=== PATIENT | female | born 1970 | race Asian ===

== ENCOUNTER 2018-04-07 16:08 | Inpatient (IN) | payer OTHER ==
[~2018-04-07] VITALS: Ht 144.8 cm; Wt 57.6 kg
[2018-04-07 18:30] VITALS: BP 138/88
[2018-04-07] MEDS ORDERED: PNEUMOCOCCAL VACCINE POLYVALENT 0.5 ML VIAL [PPSV23] IM ONE (20:00)
[2018-04-07] MEDS ORDERED: OMEPRAZOLE 20 MG CAPSULE PEG SCH (21:00)
[2018-04-07] MEDS ORDERED: CLARITHROMYCIN 250 MG/5 ML PEG SCH (21:00)
[2018-04-07] MEDS ORDERED: INSULIN LISPRO 100 UNITS/ML SQ PRN ×2 (21:45)
[2018-04-07] MEDS ORDERED: DEXTROSE 50%-WATER 25 GM/50 ML SYRINGE IVP PRN ×2 (21:45)
[2018-04-07] MEDS ORDERED: ACETAMINOPHEN 650 MG/20.3 ML SOLUTION UDCUP PEG PRN (22:00)
[2018-04-07] MEDS ORDERED: SENNA 187 MG TABLET PEG PRN (22:00)
[2018-04-07] MEDS ORDERED: DOCUSATE SODIUM 100 MG CAPSULE PEG PRN (22:00)
[2018-04-08 00:30] VITALS: BP 134/89
[2018-04-08] MEDS: CARVEDILOL 12.5 MG TABLET PEG SCH ×3 (00:44→21:42)
[2018-04-08] MEDS: MetroNIDAZOLE 500 MG TABLET PEG SCH ×3 (00:44→21:37)
[2018-04-08] MEDS: AMOXICILLIN TRIHYDRATE 250 MG/5 ML SUSPENSION ORAL.SYG PEG SCH ×3 (00:49→21:34)
[2018-04-08 01:30] LABS: GLUCOMETER DEV NAME(LOC) 2WR.2; GLUCOSE,POINT OF CARE 98 MG/DL (70-110)
[2018-04-08] MEDS: ACETAMINOPHEN 650 MG/20.3 ML SOLUTION UDCUP PEG PRN ×2 (04:40→16:23)
[2018-04-08] MEDS ORDERED: DEXTROSE 50%-WATER 25 GM/50 ML SYRINGE IVP PRN (05:15)
[2018-04-08 06:28] LABS: GLUCOMETER DEV NAME(LOC) 2WR.2; GLUCOSE,POINT OF CARE 129 MG/DL (70-110)
[2018-04-08 06:55] LABS: EOSINOPHILS % (AUTO) 0.3 % (1.0-6.0); HEMOGLOBIN 8.4 g/dL (12.0-16.0); LYMPHOCYTES # (AUTO) 2.2 K/uL (1.0-4.8); LYMPHOCYTES % (AUTO) 14.3 % (22.0-44.0); MEAN CORPUSCULAR HGB CONC 30.1 G/dL (31.0-37.0); MEAN CORPUSCULAR VOLUME 66 fL (80-100); MONOCYTES # (AUTO) 1.5 K/uL (0.1-1.0); MONOCYTES % (AUTO) 9.7 % (2.0-9.0); NEUTROPHILS # (AUTO) 11.6 K/uL (1.8-7.7); NEUTROPHILS % (AUTO) 74.7 % (40.0-70.0); PLATELET COUNT (AUTO) 659 K/uL (150-450); RED BLOOD CELL COUNT(AUTO) 4.23 MIL/uL (4.00-5.20); RED CELL DISTRIBUTION WIDTH 20.3 % (11.5-14.5)
[2018-04-08 07:17] LABS: ALANINE AMINOTRANSFERASE 151 U/L (12-78); ALBUMIN 2.3 g/dL (3.4-5.0); ALKALINE PHOSPHATASE 81 U/L (46-116); ANION GAP 4 mmol/L (8-16); ASPARTATE AMINOTRANSFERASE 166 U/L (15-37); BILIRUBIN,TOTAL 0.3 mg/dL (0.1-1.0); CALCIUM, TOTAL 8.5 mg/dL (8.8-10.5); CARBON DIOXIDE 32 mmol/L (22-29); CHLORIDE 102 mmol/L (98-107); CREATININE 0.49 mg/dL (0.60-1.30); GLOMERULAR FILTR. RATE CALC > 60 mL/min (>60); GLUCOSE,RANDOM 134 mg/dL (70-110); POTASSIUM 3.2 mmol/L (3.5-5.1); SODIUM SERUM 138 mmol/L (136-145); UREA NITROGEN, BLOOD 12 mg/dL (7-18)
[2018-04-08 07:30] VITALS: BP 132/82
[2018-04-08] MEDS: ENOXAPARIN SODIUM 40 MG/0.4 ML PF SYRINGE SQ SCH (08:16)
[2018-04-08] MEDS: CLARITHROMYCIN 500 MG TABLET PEG SCH ×2 (08:18→21:34)
[2018-04-08] MEDS: LANSOPRAZOLE 30 MG SOLUBLE TABLET PEG SCH ×2 (08:19→21:36)
[2018-04-08] MEDS: ERGOCALCIFEROL (VIT D2) 50,000 UNITS CAPSULE PEG SCH (08:19)
[2018-04-08] MEDS: PredniSONE 20 MG TABLET PEG SCH (08:22)
[2018-04-08] MEDS ORDERED: CLARITHROMYCIN 250 MG/5 ML PEG SCH (09:00)
[2018-04-08] MEDS ORDERED: AMOXICILLIN TRIHYDRATE 250 MG/5 ML SUSPENSION ORAL.SYG PEG SCH (09:00)
[2018-04-08] MEDS ORDERED: OMEPRAZOLE 20 MG CAPSULE PEG SCH (09:00)
[2018-04-08] MEDS ORDERED: MetroNIDAZOLE 500 MG TABLET PEG SCH (09:00)
[2018-04-08] MEDS ORDERED: CARVEDILOL 12.5 MG TABLET PEG SCH (09:00)
[2018-04-08] MEDS ORDERED: POTASSIUM CHLORIDE 20 MEQ ER TABLET PO ONE ×2 (13:00→21:00)
[2018-04-08] MEDS: INSULIN REGULAR, HUMAN 100 UNITS/ML SQ PRN ×2 (13:07→18:17)
[2018-04-08] MEDS ORDERED: POTASSIUM CHLORIDE 10% 40 MEQ/30 ML LIQUID UDCUP PEG ONE ×2 (13:15→21:15)
[2018-04-08 13:54] LABS: GLUCOMETER DEV NAME(LOC) 2WR.2; GLUCOSE,POINT OF CARE 170 MG/DL (70-110)
[2018-04-08] MEDS ORDERED: PHENYLEPHRINE/SHK LV/MIN OIL/PET 57 GM OINTMENT TP PRN (16:00)
[2018-04-08 16:23] VITALS: BP 143/60
[2018-04-08 16:30] VITALS: BP 143/60
[2018-04-08 18:53] LABS: GLUCOMETER DEV NAME(LOC) 2WR.1; GLUCOSE,POINT OF CARE 206 MG/DL (70-110)
[2018-04-08 21:00] VITALS: BP 127/85
[2018-04-09 00:39] LABS: GLUCOMETER DEV NAME(LOC) 2WR.1; GLUCOSE,POINT OF CARE 140 MG/DL (70-110)
[2018-04-09 00:52] VITALS: BP 121/72
[2018-04-09 06:23] LABS: GLUCOMETER DEV NAME(LOC) 2WR.1; GLUCOSE,POINT OF CARE 135 MG/DL (70-110)
[2018-04-09] MEDS: ACETAMINOPHEN 650 MG/20.3 ML SOLUTION UDCUP PEG PRN ×2 (06:48→12:31)
[2018-04-09 06:51] LABS: ANION GAP 5 mmol/L (8-16); CALCIUM, TOTAL 8.4 mg/dL (8.8-10.5); CARBON DIOXIDE 30 mmol/L (22-29); CHLORIDE 104 mmol/L (98-107); GLOMERULAR FILTR. RATE CALC > 60 mL/min (>60); GLUCOSE,RANDOM 126 mg/dL (70-110); SODIUM SERUM 139 mmol/L (136-145); UREA NITROGEN, BLOOD 12 mg/dL (7-18)
[2018-04-09 09:01] VITALS: BP 132/81
[2018-04-09] MEDS: CARVEDILOL 12.5 MG TABLET PEG SCH ×2 (09:25→21:39)
[2018-04-09] MEDS: LANSOPRAZOLE 30 MG SOLUBLE TABLET PEG SCH ×2 (09:25→21:38)
[2018-04-09] MEDS: CLARITHROMYCIN 500 MG TABLET PEG SCH ×2 (09:25→21:38)
[2018-04-09] MEDS: SULFAMETHOX/TRIMETH DS 800-160 MG/TABLET PEG SCH (09:26)
[2018-04-09] MEDS: PredniSONE 20 MG TABLET PEG SCH (09:27)
[2018-04-09] MEDS: AMOXICILLIN TRIHYDRATE 250 MG/5 ML SUSPENSION ORAL.SYG PEG SCH ×2 (09:27→21:41)
[2018-04-09] MEDS: ENOXAPARIN SODIUM 40 MG/0.4 ML PF SYRINGE SQ SCH (09:27)
[2018-04-09] MEDS: MetroNIDAZOLE 500 MG TABLET PEG SCH ×2 (09:27→21:38)
[2018-04-09] MEDS: INSULIN REGULAR, HUMAN 100 UNITS/ML SQ PRN ×2 (12:46→18:59)
[2018-04-09 12:54] LABS: GLUCOMETER DEV NAME(LOC) 2WR.1; GLUCOSE,POINT OF CARE 160 MG/DL (70-110)
[2018-04-09 16:00] VITALS: BP 128/80
[2018-04-09 20:48] LABS: GLUCOMETER DEV NAME(LOC) 2WR.2; GLUCOSE,POINT OF CARE 193 MG/DL (70-110)
[2018-04-09 21:33] VITALS: BP 115/54
[2018-04-09 21:39] VITALS: BP 130/88
[2018-04-09] MEDS: HYDROCODONE/ACETAMINOPHEN 5-325 MG TABLET PEG PRN (21:39)
[2018-04-10 00:18] LABS: GLUCOMETER DEV NAME(LOC) 2WR.1; GLUCOSE,POINT OF CARE 165 MG/DL (70-110)
[2018-04-10] MEDS: INSULIN REGULAR, HUMAN 100 UNITS/ML SQ PRN ×3 (00:18→18:30)
[2018-04-10 06:24] LABS: GLUCOMETER DEV NAME(LOC) 2WR.1; GLUCOSE,POINT OF CARE 113 MG/DL (70-110)
[2018-04-10] MEDS: CARVEDILOL 12.5 MG TABLET PEG SCH ×2 (08:22→21:06)
[2018-04-10] MEDS: MetroNIDAZOLE 500 MG TABLET PEG SCH ×2 (08:22→21:06)
[2018-04-10] MEDS: PredniSONE 20 MG TABLET PEG SCH (08:22)
[2018-04-10] MEDS: CLARITHROMYCIN 500 MG TABLET PEG SCH ×2 (08:23→21:06)
[2018-04-10] MEDS: ENOXAPARIN SODIUM 40 MG/0.4 ML PF SYRINGE SQ SCH (08:23)
[2018-04-10] MEDS: LANSOPRAZOLE 30 MG SOLUBLE TABLET PEG SCH ×2 (08:27→21:06)
[2018-04-10] MEDS: HYDROCODONE/ACETAMINOPHEN 5-325 MG TABLET PEG PRN (08:40)
[2018-04-10] MEDS: AMOXICILLIN TRIHYDRATE 250 MG/5 ML SUSPENSION ORAL.SYG PEG SCH ×2 (09:23→21:05)
[2018-04-10 09:35] VITALS: BP 144/95
[2018-04-10 11:59] LABS: GLUCOMETER DEV NAME(LOC) 2WR.1; GLUCOSE,POINT OF CARE 188 MG/DL (70-110)
[2018-04-10 15:35] VITALS: BP 129/88
[2018-04-10 18:38] LABS: GLUCOMETER DEV NAME(LOC) 2WR.2; GLUCOSE,POINT OF CARE 200 MG/DL (70-110)
[2018-04-10 20:59] VITALS: BP 129/93
[2018-04-11 00:04] LABS: GLUCOMETER DEV NAME(LOC) 2WR.1; GLUCOSE,POINT OF CARE 109 MG/DL (70-110)
[2018-04-11 00:30] VITALS: BP 122/82
[2018-04-11] MEDS: HYDROCODONE/ACETAMINOPHEN 5-325 MG TABLET PEG PRN (00:30)
[2018-04-11 06:39] LABS: GLUCOMETER DEV NAME(LOC) 2WR.1; GLUCOSE,POINT OF CARE 87 MG/DL (70-110)
[2018-04-11] MEDS: MetroNIDAZOLE 500 MG TABLET PEG SCH ×2 (08:49→21:24)
[2018-04-11] MEDS: AMOXICILLIN TRIHYDRATE 250 MG/5 ML SUSPENSION ORAL.SYG PEG SCH ×2 (08:50→21:25)
[2018-04-11] MEDS: CARVEDILOL 12.5 MG TABLET PEG SCH ×2 (08:51→21:24)
[2018-04-11] MEDS: ENOXAPARIN SODIUM 40 MG/0.4 ML PF SYRINGE SQ SCH (08:51)
[2018-04-11] MEDS: LANSOPRAZOLE 30 MG SOLUBLE TABLET PEG SCH ×2 (08:52→21:23)
[2018-04-11] MEDS: CLARITHROMYCIN 500 MG TABLET PEG SCH ×2 (08:52→21:23)
[2018-04-11] MEDS: PredniSONE 20 MG TABLET PEG SCH (08:53)
[2018-04-11 09:21] VITALS: BP 133/86
[2018-04-11 12:29] LABS: GLUCOMETER DEV NAME(LOC) 2WR.2; GLUCOSE,POINT OF CARE 169 MG/DL (70-110)
[2018-04-11] MEDS: INSULIN REGULAR, HUMAN 100 UNITS/ML SQ PRN ×2 (12:57→18:11)
[2018-04-11 16:06] VITALS: BP 146/82
[2018-04-11] MEDS ORDERED: LIDOCAINE 2% 5 ML JELLY TP PRN (18:00)
[2018-04-11 19:08] LABS: GLUCOMETER DEV NAME(LOC) 2WR.2; GLUCOSE,POINT OF CARE 152 MG/DL (70-110)
[2018-04-11 21:22] VITALS: BP 138/86
[2018-04-11] MEDS: LIDOCAINE 2% 5 ML JELLY TP SCH (21:23)
[2018-04-12 00:16] VITALS: BP 139/75
[2018-04-12] MEDS: HYDROCODONE/ACETAMINOPHEN 5-325 MG TABLET PEG PRN ×2 (00:16→11:40)
[2018-04-12 00:18] LABS: GLUCOMETER DEV NAME(LOC) 2WR.2; GLUCOSE,POINT OF CARE 123 MG/DL (70-110)
[2018-04-12 06:18] LABS: GLUCOMETER DEV NAME(LOC) 2WR.2; GLUCOSE,POINT OF CARE 100 MG/DL (70-110)
[2018-04-12 07:06] LABS: ANION GAP 7 mmol/L (8-16); CALCIUM, TOTAL 8.7 mg/dL (8.8-10.5); CARBON DIOXIDE 32 mmol/L (22-29); CHLORIDE 101 mmol/L (98-107); CREATININE 0.45 mg/dL (0.60-1.30); GLOMERULAR FILTR. RATE CALC > 60 mL/min (>60); GLUCOSE,RANDOM 101 mg/dL (70-110); POTASSIUM 3.5 mmol/L (3.5-5.1); SODIUM SERUM 140 mmol/L (136-145); UREA NITROGEN, BLOOD 16 mg/dL (7-18)
[2018-04-12 07:11] LABS: BASOPHILS % (AUTO) 0.7 % (0.0-2.0); EOSINOPHILS % (AUTO) 1.1 % (1.0-6.0); HEMATOCRIT 28.4 % (36-46); HEMOGLOBIN 8.6 g/dL (12.0-16.0); LYMPHOCYTES # (AUTO) 1.8 K/uL (1.0-4.8); LYMPHOCYTES % (AUTO) 7.9 % (22.0-44.0); MEAN CORPUSCULAR HEMOGLOBIN 19.9 pg (26.0-34.0); MEAN CORPUSCULAR HGB CONC 30.2 G/dL (31.0-37.0); MEAN CORPUSCULAR VOLUME 66 fL (80-100); MONOCYTES # (AUTO) 0.7 K/uL (0.1-1.0); MONOCYTES % (AUTO) 3.4 % (2.0-9.0); NEUTROPHILS # (AUTO) 19.4 K/uL (1.8-7.7); RED BLOOD CELL COUNT(AUTO) 4.31 MIL/uL (4.00-5.20); RED CELL DISTRIBUTION WIDTH 19.9 % (11.5-14.5)
[2018-04-12 07:32] LABS: NEUTROPHILS % (AUTO) 86.9 % (40.0-70.0); PLATELET COUNT (AUTO) 769 K/uL (150-450)
[2018-04-12 08:22] LABS: PLATELET MORPHOLOGY COMMENT GIANT PLTS PRESENT
[2018-04-12] MEDS: SULFAMETHOX/TRIMETH DS 800-160 MG/TABLET PEG SCH (08:29)
[2018-04-12 08:30] VITALS: BP 141/81
[2018-04-12] MEDS: PredniSONE 20 MG TABLET PEG SCH (08:30)
[2018-04-12] MEDS: LIDOCAINE 2% 5 ML JELLY TP SCH ×2 (08:31→20:14)
[2018-04-12] MEDS: AMOXICILLIN TRIHYDRATE 250 MG/5 ML SUSPENSION ORAL.SYG PEG SCH ×2 (08:31→20:14)
[2018-04-12] MEDS: CLARITHROMYCIN 500 MG TABLET PEG SCH ×2 (08:32→20:15)
[2018-04-12] MEDS: LANSOPRAZOLE 30 MG SOLUBLE TABLET PEG SCH ×2 (08:33→20:15)
[2018-04-12] MEDS: MetroNIDAZOLE 500 MG TABLET PEG SCH ×2 (08:33→20:15)
[2018-04-12] MEDS: ENOXAPARIN SODIUM 40 MG/0.4 ML PF SYRINGE SQ SCH (08:33)
[2018-04-12] MEDS: CARVEDILOL 12.5 MG TABLET PEG SCH ×2 (08:33→20:15)
[2018-04-12] MEDS: BACITRACIN 28.4 GM OINTMENT TP SCH (08:33)
[2018-04-12] MEDS: ACETAMINOPHEN 650 MG/20.3 ML SOLUTION UDCUP PEG PRN (09:26)
[2018-04-12] MEDS: INSULIN REGULAR, HUMAN 100 UNITS/ML SQ PRN ×2 (12:07→18:13)
[2018-04-12 13:18] LABS: GLUCOMETER DEV NAME(LOC) 2WR.2; GLUCOSE,POINT OF CARE 181 MG/DL (70-110)
[2018-04-12 15:35] VITALS: BP 138/74
[2018-04-12 18:24] LABS: GLUCOMETER DEV NAME(LOC) 2WR.1; GLUCOSE,POINT OF CARE 158 MG/DL (70-110)
[2018-04-12 21:00] VITALS: BP 136/76
[2018-04-13] VITALS: BP 118/75
[2018-04-13 00:18] LABS: GLUCOMETER DEV NAME(LOC) 2WR.2; GLUCOSE,POINT OF CARE 127 MG/DL (70-110)
[2018-04-13 06:09] LABS: GLUCOMETER DEV NAME(LOC) 2WR.2; GLUCOSE,POINT OF CARE 103 MG/DL (70-110)
[2018-04-13] MEDS: CARVEDILOL 12.5 MG TABLET PEG SCH ×2 (09:23→21:28)
[2018-04-13] MEDS: CLARITHROMYCIN 500 MG TABLET PEG SCH ×2 (09:23→21:28)
[2018-04-13] MEDS: LACTOBAC ACID/BULG/BIFID/THERM TABLET PO SCH (09:23)
[2018-04-13] MEDS: MetroNIDAZOLE 500 MG TABLET PEG SCH ×2 (09:23→21:28)
[2018-04-13] MEDS: ENOXAPARIN SODIUM 40 MG/0.4 ML PF SYRINGE SQ SCH (09:24)
[2018-04-13] MEDS: LANSOPRAZOLE 30 MG SOLUBLE TABLET PEG SCH ×2 (09:24→21:28)
[2018-04-13] MEDS: PredniSONE 20 MG TABLET PEG SCH (09:24)
[2018-04-13] MEDS: AMOXICILLIN TRIHYDRATE 250 MG/5 ML SUSPENSION ORAL.SYG PEG SCH ×2 (09:25→21:28)
[2018-04-13] MEDS: BACITRACIN 28.4 GM OINTMENT TP SCH (09:26)
[2018-04-13] MEDS: LIDOCAINE 2% 5 ML JELLY TP SCH ×2 (09:26→21:28)
[2018-04-13] MEDS: ACETAMINOPHEN 650 MG/20.3 ML SOLUTION UDCUP PEG PRN (09:28)
[2018-04-13 09:47] VITALS: BP 128/74
[2018-04-13 12:54] LABS: GLUCOMETER DEV NAME(LOC) 2WR.1; GLUCOSE,POINT OF CARE 186 MG/DL (70-110)
[2018-04-13] MEDS: INSULIN REGULAR, HUMAN 100 UNITS/ML SQ PRN ×2 (12:58→17:56)
[2018-04-13 16:10] VITALS: BP 136/81
[2018-04-13 18:24] LABS: GLUCOMETER DEV NAME(LOC) 2WR.2; GLUCOSE,POINT OF CARE 169 MG/DL (70-110)
[2018-04-13 21:25] VITALS: BP 137/87
[2018-04-13] MEDS: MELATONIN 3 MG TABLET PO PRN (21:41)
[2018-04-13 23:59] LABS: GLUCOMETER DEV NAME(LOC) 2WR.2; GLUCOSE,POINT OF CARE 134 MG/DL (70-110)
[2018-04-14 00:14] VITALS: BP 117/72
[2018-04-14 06:14] LABS: GLUCOMETER DEV NAME(LOC) 2WR.2; GLUCOSE,POINT OF CARE 111 MG/DL (70-110)
[2018-04-14 07:42] LABS: ANION GAP 6 mmol/L (8-16); CALCIUM, TOTAL 8.3 mg/dL (8.8-10.5); CARBON DIOXIDE 31 mmol/L (22-29); CHLORIDE 104 mmol/L (98-107); CREATININE 0.39 mg/dL (0.60-1.30); GLOMERULAR FILTR. RATE CALC > 60 mL/min (>60); GLUCOSE,RANDOM 109 mg/dL (70-110); POTASSIUM 3.6 mmol/L (3.5-5.1); SODIUM SERUM 141 mmol/L (136-145); UREA NITROGEN, BLOOD 19 mg/dL (7-18)
[2018-04-14 07:44] LABS: BASOPHILS % (AUTO) 0.5 % (0.0-2.0); EOSINOPHILS % (AUTO) 1.8 % (1.0-6.0); HEMATOCRIT 28.3 % (36-46); HEMOGLOBIN 8.6 g/dL (12.0-16.0); LYMPHOCYTES # (AUTO) 1.7 K/uL (1.0-4.8); LYMPHOCYTES % (AUTO) 10.9 % (22.0-44.0); MEAN CORPUSCULAR HEMOGLOBIN 19.9 pg (26.0-34.0); MEAN CORPUSCULAR HGB CONC 30.4 G/dL (31.0-37.0); MEAN CORPUSCULAR VOLUME 65 fL (80-100); MONOCYTES # (AUTO) 0.9 K/uL (0.1-1.0); MONOCYTES % (AUTO) 5.5 % (2.0-9.0); NEUTROPHILS # (AUTO) 12.9 K/uL (1.8-7.7); NEUTROPHILS % (AUTO) 81.3 % (40.0-70.0); RED BLOOD CELL COUNT(AUTO) 4.32 MIL/uL (4.00-5.20); RED CELL DISTRIBUTION WIDTH 20.1 % (11.5-14.5)
[2018-04-14 08:00] LABS: PLATELET COUNT (AUTO) 781 K/uL (150-450)
[2018-04-14] MEDS: LIDOCAINE 2% 5 ML JELLY TP SCH ×2 (08:17→21:31)
[2018-04-14] MEDS: SULFAMETHOX/TRIMETH DS 800-160 MG/TABLET PEG SCH (08:17)
[2018-04-14] MEDS: LANSOPRAZOLE 30 MG SOLUBLE TABLET PEG SCH ×2 (08:17→21:32)
[2018-04-14] MEDS: CARVEDILOL 12.5 MG TABLET PEG SCH ×2 (08:17→21:31)
[2018-04-14] MEDS: ENOXAPARIN SODIUM 40 MG/0.4 ML PF SYRINGE SQ SCH (08:17)
[2018-04-14] MEDS: MetroNIDAZOLE 500 MG TABLET PEG SCH ×2 (08:17→21:31)
[2018-04-14] MEDS: BACITRACIN 28.4 GM OINTMENT TP SCH (08:17)
[2018-04-14] MEDS: LACTOBAC ACID/BULG/BIFID/THERM TABLET PO SCH (08:17)
[2018-04-14] MEDS: PredniSONE 20 MG TABLET PEG SCH (08:18)
[2018-04-14] MEDS: CLARITHROMYCIN 500 MG TABLET PEG SCH ×2 (08:18→21:31)
[2018-04-14] MEDS: AMOXICILLIN TRIHYDRATE 250 MG/5 ML SUSPENSION ORAL.SYG PEG SCH ×2 (08:26→21:36)
[2018-04-14 09:00] VITALS: BP 133/89
[2018-04-14] MEDS: HYDROCODONE/ACETAMINOPHEN 5-325 MG TABLET PEG PRN (10:45)
[2018-04-14] MEDS: INSULIN REGULAR, HUMAN 100 UNITS/ML SQ PRN ×2 (12:33→18:09)
[2018-04-14 13:49] LABS: GLUCOMETER DEV NAME(LOC) 2WR.1; GLUCOSE,POINT OF CARE 176 MG/DL (70-110)
[2018-04-14 16:00] VITALS: BP 134/94
[2018-04-14 17:44] LABS: GLUCOMETER DEV NAME(LOC) 2WR.1; GLUCOSE,POINT OF CARE 145 MG/DL (70-110)
[2018-04-15 01:27] VITALS: BP 130/68
[2018-04-15 05:50] VITALS: BP 150/89
[2018-04-15 05:54] LABS: GLUCOMETER DEV NAME(LOC) 2WR.2; GLUCOSE,POINT OF CARE 76 MG/DL (70-110)
[2018-04-15 06:10] VITALS: BP 139/80
[2018-04-15 07:09] VITALS: BP 133/82
[2018-04-15] MEDS: AMOXICILLIN TRIHYDRATE 250 MG/5 ML SUSPENSION ORAL.SYG PEG SCH (08:30)
[2018-04-15] MEDS: ENOXAPARIN SODIUM 40 MG/0.4 ML PF SYRINGE SQ SCH (08:30)
[2018-04-15] MEDS: BACITRACIN 28.4 GM OINTMENT TP SCH (08:30)
[2018-04-15] MEDS: CARVEDILOL 12.5 MG TABLET PEG SCH ×2 (08:31→21:26)
[2018-04-15] MEDS: ERGOCALCIFEROL (VIT D2) 50,000 UNITS CAPSULE PEG SCH (08:31)
[2018-04-15] MEDS: CLARITHROMYCIN 500 MG TABLET PEG SCH ×2 (08:31→21:26)
[2018-04-15] MEDS: LIDOCAINE 2% 5 ML JELLY TP SCH ×2 (08:31→21:26)
[2018-04-15] MEDS: LANSOPRAZOLE 30 MG SOLUBLE TABLET PEG SCH ×2 (08:31→21:26)
[2018-04-15] MEDS: LACTOBAC ACID/BULG/BIFID/THERM TABLET PO SCH (08:31)
[2018-04-15] MEDS: MetroNIDAZOLE 500 MG TABLET PEG SCH ×2 (08:32→21:26)
[2018-04-15] MEDS: PredniSONE 20 MG TABLET PEG SCH (08:32)
[2018-04-15] MEDS: HYDROCODONE/ACETAMINOPHEN 5-325 MG TABLET PEG PRN (10:16)
[2018-04-15] MEDS: ONDANSETRON HCL 4 MG TABLET PO PRN (10:16)
[2018-04-15 16:30] VITALS: BP 141/83
[2018-04-15 17:23] LABS: GLUCOMETER DEV NAME(LOC) 2WR.2; GLUCOSE,POINT OF CARE 175 MG/DL (70-110)
[2018-04-15] MEDS: INSULIN REGULAR, HUMAN 100 UNITS/ML SQ PRN (17:49)
[2018-04-15 21:24] VITALS: BP 113/82
[2018-04-16 01:45] VITALS: BP 128/83
[2018-04-16 05:49] LABS: GLUCOMETER DEV NAME(LOC) 2WR.2; GLUCOSE,POINT OF CARE 82 MG/DL (70-110)
[2018-04-16 09:17] VITALS: BP 120/60
[2018-04-16] MEDS: ENOXAPARIN SODIUM 40 MG/0.4 ML PF SYRINGE SQ SCH (09:26)
[2018-04-16] MEDS: CARVEDILOL 12.5 MG TABLET PEG SCH ×2 (09:26→20:20)
[2018-04-16] MEDS: LIDOCAINE 2% 5 ML JELLY TP SCH ×2 (09:26→20:20)
[2018-04-16] MEDS: LANSOPRAZOLE 30 MG SOLUBLE TABLET PEG SCH ×2 (09:26→20:20)
[2018-04-16] MEDS: BACITRACIN 28.4 GM OINTMENT TP SCH (09:26)
[2018-04-16] MEDS: LACTOBAC ACID/BULG/BIFID/THERM TABLET PO SCH (09:27)
[2018-04-16] MEDS: SULFAMETHOX/TRIMETH DS 800-160 MG/TABLET PEG SCH (09:27)
[2018-04-16] MEDS: PredniSONE 20 MG TABLET PEG SCH (09:30)
[2018-04-16 16:01] VITALS: BP 133/75
[2018-04-16 17:00] LABS: GLUCOMETER DEV NAME(LOC) 2WR.1; GLUCOSE,POINT OF CARE 216 MG/DL (70-110)
[2018-04-16] MEDS: INSULIN REGULAR, HUMAN 100 UNITS/ML SQ PRN (17:19)
[2018-04-16 20:17] VITALS: BP 140/72
[2018-04-16] MEDS: MELATONIN 3 MG TABLET PO PRN (20:20)
[2018-04-17] VITALS: BP 120/71
[2018-04-17] MEDS: ONDANSETRON HCL 4 MG TABLET PO PRN ×2 (02:37→08:42)
[2018-04-17 06:08] LABS: GLUCOMETER DEV NAME(LOC) 2WR.1; GLUCOSE,POINT OF CARE 93 MG/DL (70-110)
[2018-04-17] MEDS: LANSOPRAZOLE 30 MG SOLUBLE TABLET PEG SCH ×2 (08:41→20:24)
[2018-04-17] MEDS: LACTOBAC ACID/BULG/BIFID/THERM TABLET PO SCH (08:41)
[2018-04-17] MEDS: PredniSONE 20 MG TABLET PEG SCH (08:42)
[2018-04-17] MEDS: LIDOCAINE 2% 5 ML JELLY TP SCH ×2 (08:42→20:24)
[2018-04-17] MEDS: ENOXAPARIN SODIUM 40 MG/0.4 ML PF SYRINGE SQ SCH (08:42)
[2018-04-17] MEDS: CARVEDILOL 12.5 MG TABLET PEG SCH ×2 (08:42→20:24)
[2018-04-17] MEDS: BACITRACIN 28.4 GM OINTMENT TP SCH (08:42)
[2018-04-17] MEDS ORDERED: BACI30OI6 TP (08:45)
[2018-04-17] MEDS ORDERED: [UNRECOGNIZED DRUG - OTHER] PEG (08:45)
[2018-04-17] MEDS ORDERED: SULF1TAB42 PEG (08:45)
[2018-04-17] MEDS ORDERED: CARV12 PEG (08:45)
[2018-04-17] MEDS ORDERED: ERGO500014 PEG (08:45)
[2018-04-17] MEDS ORDERED: PRED20 PEG (08:45)
[2018-04-17] MEDS ORDERED: LANS30TA4 PEG (08:45)
[2018-04-17 09:00] VITALS: BP 132/76
[2018-04-17] MEDS: HYDROCODONE/ACETAMINOPHEN 5-325 MG TABLET PEG PRN (11:14)
[2018-04-17 15:45] VITALS: BP 125/72
[2018-04-17] MEDS: INSULIN REGULAR, HUMAN 100 UNITS/ML SQ PRN (16:42)
[2018-04-17 18:24] LABS: GLUCOMETER DEV NAME(LOC) 2WR.2; GLUCOSE,POINT OF CARE 229 MG/DL (70-110)
[2018-04-18] VITALS: BP 124/76
[2018-04-18] MEDS: HYDROCODONE/ACETAMINOPHEN 5-325 MG TABLET PEG PRN ×3 (05:34→20:08)
[2018-04-18 05:43] LABS: GLUCOMETER DEV NAME(LOC) 2WR.2; GLUCOSE,POINT OF CARE 99 MG/DL (70-110)
[2018-04-18 07:39] VITALS: BP 135/68
[2018-04-18] MEDS: ENOXAPARIN SODIUM 40 MG/0.4 ML PF SYRINGE SQ SCH (08:26)
[2018-04-18] MEDS: LANSOPRAZOLE 30 MG SOLUBLE TABLET PEG SCH ×2 (08:27→20:28)
[2018-04-18] MEDS: LIDOCAINE 2% 5 ML JELLY TP SCH ×2 (08:27→20:28)
[2018-04-18] MEDS: PredniSONE 20 MG TABLET PEG SCH (08:27)
[2018-04-18] MEDS: BACITRACIN 28.4 GM OINTMENT TP SCH (08:27)
[2018-04-18] MEDS: ONDANSETRON HCL 4 MG TABLET PO PRN (08:27)
[2018-04-18] MEDS: LACTOBAC ACID/BULG/BIFID/THERM TABLET PO SCH (08:27)
[2018-04-18] MEDS: CARVEDILOL 12.5 MG TABLET PEG SCH ×2 (08:27→20:28)
[2018-04-18 15:45] VITALS: BP 127/83
[2018-04-18] MEDS: INSULIN REGULAR, HUMAN 100 UNITS/ML SQ PRN (16:41)
[2018-04-18 17:54] LABS: GLUCOMETER DEV NAME(LOC) 2WR.2; GLUCOSE,POINT OF CARE 213 MG/DL (70-110)
[2018-04-18 20:08] VITALS: BP 133/83
[2018-04-18] MEDS: MELATONIN 3 MG TABLET PO PRN (20:28)
[2018-04-19] VITALS (9 sets, daily range): BP systolic 123–177; BP diastolic 71–115
[2018-04-19] MEDS: HYDROCODONE/ACETAMINOPHEN 5-325 MG TABLET PEG PRN (05:46)
[2018-04-19 06:08] LABS: GLUCOMETER DEV NAME(LOC) 2WR.1; GLUCOSE,POINT OF CARE 97 MG/DL (70-110)
[2018-04-19] MEDS: CARVEDILOL 12.5 MG TABLET PEG SCH ×2 (08:17→21:15)
[2018-04-19] MEDS: LANSOPRAZOLE 30 MG SOLUBLE TABLET PEG SCH ×2 (08:18→21:14)
[2018-04-19] MEDS: ENOXAPARIN SODIUM 40 MG/0.4 ML PF SYRINGE SQ SCH (08:18)
[2018-04-19] MEDS: LACTOBAC ACID/BULG/BIFID/THERM TABLET PO SCH (08:18)
[2018-04-19] MEDS: PredniSONE 20 MG TABLET PEG SCH (08:18)
[2018-04-19] MEDS: BACITRACIN 28.4 GM OINTMENT TP SCH (08:18)
[2018-04-19] MEDS: LIDOCAINE 2% 5 ML JELLY TP SCH ×2 (08:18→21:15)
[2018-04-19] MEDS: SULFAMETHOX/TRIMETH DS 800-160 MG/TABLET PO SCH (11:11)
[2018-04-19] MEDS ORDERED: TraMADol HCL 50 MG TABLET PO PRN (12:00)
[2018-04-19] MEDS ORDERED: TraMADol HCL 50 MG TABLET PO SCH (12:00)
[2018-04-19] MEDS ORDERED: HydrALAZINE HCL 25 MG TABLET PO PRN (13:45)
[2018-04-19 14:49] LABS: GLUCOMETER DEV NAME(LOC) 2WR.2; GLUCOSE,POINT OF CARE 248 MG/DL (70-110)
[2018-04-19] MEDS: INSULIN REGULAR, HUMAN 100 UNITS/ML SQ PRN (17:43)
[2018-04-19 17:54] LABS: GLUCOMETER DEV NAME(LOC) 2WR.1; GLUCOSE,POINT OF CARE 228 MG/DL (70-110)
[2018-04-19] MEDS: MELATONIN 3 MG TABLET PO PRN (21:18)
[2018-04-20 06:14] LABS: GLUCOMETER DEV NAME(LOC) 2WR.2; GLUCOSE,POINT OF CARE 95 MG/DL (70-110)
[2018-04-20 08:10] VITALS: BP 133/88
[2018-04-20] MEDS: LACTOBAC ACID/BULG/BIFID/THERM TABLET PO SCH (09:00)
[2018-04-20] MEDS: CARVEDILOL 12.5 MG TABLET PEG SCH ×2 (09:00→20:16)
[2018-04-20] MEDS: ENOXAPARIN SODIUM 40 MG/0.4 ML PF SYRINGE SQ SCH (09:00)
[2018-04-20] MEDS: LIDOCAINE 2% 5 ML JELLY TP SCH ×2 (09:00→20:16)
[2018-04-20] MEDS: BACITRACIN 28.4 GM OINTMENT TP SCH (09:00)
[2018-04-20] MEDS: LANSOPRAZOLE 30 MG SOLUBLE TABLET PEG SCH ×2 (09:00→20:16)
[2018-04-20] MEDS: PredniSONE 20 MG TABLET PEG SCH (09:00)
[2018-04-20 16:02] VITALS: BP 124/84
[2018-04-20 16:13] LABS: ANION GAP 8 mmol/L (8-16); CALCIUM, TOTAL 8.7 mg/dL (8.8-10.5); CARBON DIOXIDE 30 mmol/L (22-29); CHLORIDE 99 mmol/L (98-107); CREATININE 0.37 mg/dL (0.60-1.30); GLOMERULAR FILTR. RATE CALC > 60 mL/min (>60); GLUCOSE,RANDOM 212 mg/dL (70-110); POTASSIUM 4.7 mmol/L (3.5-5.1); SODIUM SERUM 137 mmol/L (136-145); UREA NITROGEN, BLOOD 16 mg/dL (7-18)
[2018-04-20 16:17] LABS: ALANINE AMINOTRANSFERASE 159 U/L (12-78); ALBUMIN 2.6 g/dL (3.4-5.0); ALKALINE PHOSPHATASE 98 U/L (46-116); ASPARTATE AMINOTRANSFERASE 176 U/L (15-37); BILIRUBIN,TOTAL 0.3 mg/dL (0.1-1.0); PHOSPHORUS 4.7 mg/dL (2.5-4.9); TOTAL PROTEIN, SERUM 7.2 g/dL (6.4-8.2)
[2018-04-20 17:35] LABS: GLUCOMETER DEV NAME(LOC) 2WR.1; GLUCOSE,POINT OF CARE 185 MG/DL (70-110)
[2018-04-20] MEDS: INSULIN REGULAR, HUMAN 100 UNITS/ML SQ PRN (18:15)
[2018-04-20 20:12] VITALS: BP 150/96
[2018-04-20] MEDS: OXYGEN THERAPY IH SCH (20:15)
[2018-04-20] MEDS: MELATONIN 3 MG TABLET PO PRN (20:16)
[2018-04-20 22:21] VITALS: BP 125/84
[2018-04-21 05:00] VITALS: BP 138/82
[2018-04-21 06:10] LABS: GLUCOMETER DEV NAME(LOC) 2WR.1; GLUCOSE,POINT OF CARE 101 MG/DL (70-110)
[2018-04-21 07:32] VITALS: BP 140/83
[2018-04-21] MEDS: OXYGEN THERAPY IH SCH ×2 (08:38→20:11)
[2018-04-21] MEDS: BACITRACIN 28.4 GM OINTMENT TP SCH (08:38)
[2018-04-21] MEDS: SULFAMETHOX/TRIMETH DS 800-160 MG/TABLET PO SCH (08:38)
[2018-04-21] MEDS: LANSOPRAZOLE 30 MG SOLUBLE TABLET PEG SCH ×2 (08:38→20:23)
[2018-04-21] MEDS: LACTOBAC ACID/BULG/BIFID/THERM TABLET PO SCH (08:38)
[2018-04-21] MEDS: ENOXAPARIN SODIUM 40 MG/0.4 ML PF SYRINGE SQ SCH (08:38)
[2018-04-21] MEDS: LIDOCAINE 2% 5 ML JELLY TP SCH ×2 (08:38→20:23)
[2018-04-21] MEDS: PredniSONE 20 MG TABLET PEG SCH (08:39)
[2018-04-21] MEDS: CARVEDILOL 12.5 MG TABLET PEG SCH ×2 (08:39→20:23)
[2018-04-21] MEDS: ESCITALOPRAM OXALATE 10 MG TABLET PEG SCH (10:33)
[2018-04-21 16:11] VITALS: BP 129/84
[2018-04-21] MEDS ORDERED: SODIUM CHLORIDE 0.9% 100 ML ONE (16:43)
[2018-04-21] MEDS ORDERED: IOVERSOL 350 MG/ML 100 ML VIAL ONE (16:43)
[2018-04-21] MEDS: INSULIN REGULAR, HUMAN 100 UNITS/ML SQ PRN (17:03)
[2018-04-21 17:14] LABS: GLUCOMETER DEV NAME(LOC) 2WR.2; GLUCOSE,POINT OF CARE 204 MG/DL (70-110)
[2018-04-21 20:09] VITALS: BP 143/89
[2018-04-21] MEDS: MELATONIN 3 MG TABLET PO PRN (20:23)
[2018-04-22] MEDS: 0.9% SODIUM CHLORIDE 10 ML SYRINGE IVP SCH ×3 (00:02→15:35)
[2018-04-22 02:00] VITALS: BP 134/81
[2018-04-22] MEDS: ALPRAZolam 0.25 MG TABLET PEG PRN ×2 (04:39→20:51)
[2018-04-22] MEDS: HYDROCODONE/ACETAMINOPHEN 5-325 MG TABLET PEG PRN (04:39)
[2018-04-22 05:49] LABS: GLUCOMETER DEV NAME(LOC) 2WR.2; GLUCOSE,POINT OF CARE 102 MG/DL (70-110)
[2018-04-22 09:01] VITALS: BP 148/91
[2018-04-22] MEDS: LIDOCAINE 2% 5 ML JELLY TP SCH ×2 (09:48→20:07)
[2018-04-22] MEDS: BACITRACIN 28.4 GM OINTMENT TP SCH (09:48)
[2018-04-22] MEDS: LACTOBAC ACID/BULG/BIFID/THERM TABLET PO SCH (09:48)
[2018-04-22] MEDS: ENOXAPARIN SODIUM 40 MG/0.4 ML PF SYRINGE SQ SCH (09:48)
[2018-04-22] MEDS: ERGOCALCIFEROL (VIT D2) 50,000 UNITS CAPSULE PEG SCH (09:48)
[2018-04-22] MEDS: LANSOPRAZOLE 30 MG SOLUBLE TABLET PEG SCH ×2 (09:49→20:08)
[2018-04-22] MEDS: PredniSONE 20 MG TABLET PEG SCH (09:49)
[2018-04-22] MEDS: CARVEDILOL 12.5 MG TABLET PEG SCH ×2 (09:49→20:08)
[2018-04-22] MEDS: ESCITALOPRAM OXALATE 10 MG TABLET PEG SCH (09:49)
[2018-04-22] MEDS: OXYGEN THERAPY IH SCH ×2 (09:50→20:07)
[2018-04-22] MEDS ORDERED: GuaiFENesin/D-METHORPHAN [SUGAR-FREE] 200-20MG/10 ML SYRUP UDCUP PO PRN (13:30)
[2018-04-22] MEDS ORDERED: SODIUM CHLORIDE 0.9% 100 ML ONE (15:27)
[2018-04-22] MEDS ORDERED: IOVERSOL 350 MG/ML 100 ML VIAL ONE (15:27)
[2018-04-22 16:30] VITALS: BP 135/83
[2018-04-22] MEDS: INSULIN REGULAR, HUMAN 100 UNITS/ML SQ PRN (18:33)
[2018-04-22 18:34] LABS: GLUCOMETER DEV NAME(LOC) 2WR.2; GLUCOSE,POINT OF CARE 167 MG/DL (70-110)
[2018-04-22 20:05] VITALS: BP 137/81
[2018-04-22] MEDS: MELATONIN 3 MG TABLET PO PRN (20:08)
[2018-04-22 20:50] VITALS: BP 136/86
[2018-04-22 21:50] VITALS: BP 136/86
[2018-04-23 02:00] VITALS: BP 145/91
[2018-04-23 03:48] VITALS: BP 145/91
[2018-04-23] MEDS: HYDROCODONE/ACETAMINOPHEN 5-325 MG TABLET PEG PRN ×2 (04:17→10:06)
[2018-04-23 06:13] LABS: GLUCOMETER DEV NAME(LOC) 2WR.2; GLUCOSE,POINT OF CARE 97 MG/DL (70-110)
[2018-04-23 07:47] VITALS: BP 141/92
[2018-04-23] MEDS: OXYGEN THERAPY IH SCH (07:56)
[2018-04-23] MEDS: 0.9% SODIUM CHLORIDE 10 ML SYRINGE IVP SCH ×3 (07:58→15:46)
[2018-04-23] MEDS: ENOXAPARIN SODIUM 40 MG/0.4 ML PF SYRINGE SQ SCH (07:59)
[2018-04-23] MEDS: CARVEDILOL 12.5 MG TABLET PEG SCH (07:59)
[2018-04-23] MEDS: PredniSONE 20 MG TABLET PEG SCH (07:59)
[2018-04-23] MEDS: SULFAMETHOX/TRIMETH DS 800-160 MG/TABLET PO SCH (07:59)
[2018-04-23] MEDS: ESCITALOPRAM OXALATE 10 MG TABLET PEG SCH (07:59)
[2018-04-23] MEDS: LIDOCAINE 2% 5 ML JELLY TP SCH (08:00)
[2018-04-23] MEDS: LANSOPRAZOLE 30 MG SOLUBLE TABLET PEG SCH (08:00)
[2018-04-23] MEDS: LACTOBAC ACID/BULG/BIFID/THERM TABLET PO SCH (08:00)
[2018-04-23] MEDS: BACITRACIN 28.4 GM OINTMENT TP SCH (08:00)
[2018-04-23 08:32] VITALS: BP 141/92
[2018-04-23 10:06] VITALS: BP 122/75
[2018-04-23] MEDS: ALPRAZolam 0.25 MG TABLET PEG PRN (10:10)
[2018-04-23 11:38] LABS: GLUCOMETER DEV NAME(LOC) 2WR.2; GLUCOSE,POINT OF CARE 157 MG/DL (70-110)
[2018-04-23 15:10] VITALS: BP 134/86
[2018-04-23 17:16] LABS: ABG BASE EXCESS 5.9 mmol/L (-2.0-3.0); ABG CARBOXYHEMOGLOBIN 0.1 % (0.0-1.5); ABG HCO3 29.2 mmol/L (22.0-26.0); ABG METHEMOGLOBIN 0.3 % (0.0-1.5); ABG OXYGEN CONTENT 13.9 mL/dL (15.0-23.0); ABG OXYGEN SATURATION 96.6 % (95.0-98.0); ABG OXYHEMOGLOBIN 96.2 % (94.0-100.0); ABG PCO2 46 mmHg (35-45); ABG PH 7.433 (7.35-7.450); ABG TOTAL HEMOGLOBIN 10.2 G/dL (12.0-18.0); PO2, ARTERIAL BG 90.1 mmHg (88.0-96.0); SITE, BLOOD GAS RT RADIAL; SOURCE, BLOOD GAS ARTERIAL; TEMPERATURE, FAHRENHEIT, BG 98.6 FAHREN (96.0-98.6)
[2018-04-23 17:17] LABS: O2 DEVICE,BLOOD GAS CANNULA (ROOM AIR)
[2018-04-27] MEDS ORDERED: PredniSONE 20 MG TABLET PEG SCH (09:00)
== END 2018-04-23 16:35 | disposition short-term general hospital (02) | DRG 555 ==
LOC: 2WR 18:05
DX: M60.9 Myositis, unspecified (principal); G82.50 Quadriplegia, unspecified; J82 Pulmonary eosinophilia, not elsewhere classified; I31.3 Pericardial effusion (noninflammatory); J81.1 Chronic pulmonary edema; R13.12 Dysphagia, oropharyngeal phase; G47.00 Insomnia, unspecified; I10 Essential (primary) hypertension; K62.3 Rectal prolapse; D18.03 Hemangioma of intra-abdominal structures; D64.9 Anemia, unspecified; E11.65 Type 2 diabetes mellitus with hyperglycemia; E66.9 Obesity, unspecified; F32.9 Major depressive disorder, single episode, unspecified; F41.9 Anxiety disorder, unspecified; G89.29 Other chronic pain; I11.9 Hypertensive heart disease without heart failure; K59.00 Constipation, unspecified; M40.50 Lordosis, unspecified, site unspecified; M50.30 Other cervical disc degeneration, unspecified cervical region; T38.0X5A Adverse effect of glucocorticoids and synthetic analogues, initial encounter; W19.XXXA Unspecified fall, initial encounter; Z93.1 Gastrostomy status; Z98.891 History of uterine scar from previous surgery; Z86.19 Personal history of other infectious and parasitic diseases; Z79.899 Other long term (current) drug therapy; Z82.5 Family history of asthma and other chronic lower respiratory diseases; Y93.89 Activity, other specified; Y92.89 Other specified places as the place of occurrence of the external cause; Y99.8 Other external cause status; Z28.21 Immunization not carried out because of patient refusal
CPT/HCPCS: 71260; 72040; 72100; 72193; 74018; 74160; 82271; 82805; 83735; 84100; 87045; 87081; 92507; 92526; 92610; 93005; 97110; 97112; 97116; 97150; 97163; 97167; 97530; 97535; 99366; G0238; J1650; J7050; Q0162